=== PATIENT | female | born 1955 | race Caucasian/White ===

== ENCOUNTER 2019-08-27 23:06 | Emergency (ER) | payer OTHER ==
[2019-08-28] MEDS ORDERED: HYDROCODONE/APAP 7.5/325 MG TAB ONE (00:09)
[2019-08-28] MEDS ORDERED: TETANUS & DIPHTHERIA TOX,ADULT 0.5 ML VIAL ONE (00:10)
--- NOTE | 2019-08-28 00:44 | ER ---
Nurse's Notes [facility] Name: Elida Mcdowell Age: 64 yrs Sex: Female : 1955 Arrival Date: 08/27/2019 Time: 23:10 Bed 26 Private MD: Diagnosis: Nondisplaced transcondylar fracture of right humerus Presentation: 08/26 23:24 Chief complaint: Patient states: "I was getting out of my car and I thought I had put jd3 it in park when I guess it was in reverse. I went to get out of the car and it started rolling back and I fell and landed on my right elbow and arm. I banged it up pretty good. EMS came and they bandaged it up and suggested I come to the ER.". Coronavirus screen: Proceed with normal triage. Ebola Screen: Patient negative for fever greater than or equal to 101.5 degrees Fahrenheit, and additional compatible Ebola Virus Disease symptoms. Initial Sepsis Screen: Does the patient meet any 2 criteria? No. Patient's initial sepsis screen is negative. Does the patient have a suspected source of infection? No. Patient's initial sepsis screen is negative. Risk Assessment: Do you want to hurt yourself or someone else? Patient reports no desire to harm self or others. Onset of symptoms was August 27, 2019. 23:24 Method Of Arrival: Wheelchair jd3 23:24 Acuity: BRITNEY 4 jd3 Historical: - Allergies: 23:29 No Known Allergies; jd3 - Home Meds: 23:29 levothyroxine oral [Active]; pravastatin oral oral [Active]; jd3 - PMHx: 23:29 High Cholesterol; jd3 - PSHx: 23:29 neck; jd3 - Immunization history:: Adult Immunizations up to date. - Social history:: Smoking status: Patient reports the use of cigarette tobacco products, smokes one pack cigarettes per day. Screenin:45 Abuse screen: Denies threats or abuse. Nutritional screening: No deficits noted. jb4 Tuberculosis screening: No symptoms or risk factors identified. Fall Risk None identified. Assessment: 23:45 General: Appears in no apparent distress. comfortable, Behavior is calm, cooperative, jb4 appropriate for age. Pain: Complains of pain in right elbow Pain does not radiate. Pain currently is 3 out of 10 on a pain scale. Neuro: Level of Consciousness is awake, alert, obeys commands, Oriented to person, place, time, situation. Cardiovascular: Capillary refill < 3 seconds in right fingers Patient's skin is warm and dry. Pulses are 3+ in right radial artery. Respiratory: Airway is patent Respiratory effort is even, unlabored, Respiratory pattern is regular, symmetrical. GI: No signs and/or symptoms were reported involving the gastrointestinal system. : No signs and/or symptoms were reported regarding the genitourinary system. EENT: No signs and/or symptoms were reported regarding the EENT system. Derm: Skin is intact, Skin is pink, warm \\T\\ dry. Musculoskeletal: Circulation, motion, and sensation intact. Range of motion: limited in right elbow. Injury Description: Abrasion sustained to right bicep is bleeding. 08/27 01:10 Reassessment: Patient appears in no apparent distress at this time. Patient and/or jb4 family updated on plan of care and expected duration. Pain level reassessed. Patient is alert, oriented x 3, equal unlabored respirations, skin warm/dry/pink. Pt verbalized understanding of d/c and follow up instructions. Splint checked by ED provider. Pt assisted to vehicle via wheelchiar. Vital Signs: 08/26 23:29 BP 122 / 66; Pulse 87; Resp 17 S; Temp 97.6(TE); Pulse Ox 100% on R/A; Weight 68.04 kg jd3 (R); Height 5 ft. 1 in. (154.94 cm) (R); Pain 3/10; 08/27 01:00 BP 105 / 55; Pulse 81; Resp 16; Pulse Ox 99% on R/A; jb4 08/26 23:29 Body Mass Index 28.34 (68.04 kg, 154.94 cm) jd3 ED Course: 08/26 23:10 Patient arrived in ED. cl3 23:17 Avery Wu PA is PHCP. cp 23:17 Socrates Amaral MD is Attending Physician. cp 23:27 Triage completed. jd3 23:29 Arm band placed on. jd3 23:45 Patient has correct armband on for positive identification. Bed in low position. Call jb4 light in reach. Side rails up X 1. Pulse ox on. NIBP on. 23:59 Facundo Orourke, RN is Primary Nurse. jb4 08/27 00:13 XRAY Elbow RIGHT 3 view In Process Unspecified. EDMS 00:42 Alberto Logan MD is Referral Physician. cp 01:10 Orthoglass splint: posterior long arm splint applied to the right arm. Checked by ED jb4 Provider. 01:19 No provider procedures requiring assistance completed. Patient did not have IV access jb4 during this emergency room visit. Administered Medications: 00:12 Drug: Hydrocodone-Acetaminophen (7.5 mg-325 mg) 1 tabs {Note: rass score 0.} Route: PO; jb4 00:30 Follow up: Response: No adverse reaction; Pain is decreased; RASS: Alert and Calm (0) jb4 00:12 Drug: Tetanus-Diphtheria Toxoid Adult 0.5 ml {[employer]: [employer]. Exp: jb4 05/23/2021. Lot #: [id number]. } Route: IM; Site: right deltoid; 00:30 Follow up: Response: No adverse reaction jb4 Outcome: 00:44 Discharge ordered by MD. cp 01:10 Discharged to home via wheelchair, with family. jb4 01:10 Condition: stable 01:10 Discharge instructions given to patient, Instructed on discharge instructions, follow up and referral plans. medication usage, Demonstrated understanding of instructions, follow-up care, medications, Prescriptions given X 1. 01:27 Patient left the ED. jb4 Signatures: Dispatcher [employer] EDNV Avery Wu PA PA cp Facundo Orourke, RN RN jb4 Felipe Santiago RN RN Carmella Fischer cl3
--- NOTE | 2019-08-28 00:45 | EDPHYS ---
Physician Documentation [facility] Name: Elida Mcdowell Age: 64 yrs Sex: Female : 1955 Arrival Date: 08/27/2019 Time: 23:10 Bed 26 Private MD: ED Physician Socrates Amaral HPI: 08/26 23:34 This 64 yrs old Female presents to ER via Wheelchair with complaints of Arm cp Pain, Arm Injury. 23:34 The patient or guardian complains of an abrasion, injury, pain, that is acute. The cp complaints affect the right elbow. Context: resulted from a fall, while getting out of car. Onset: The symptoms/episode began/occurred today. Treatment prior to arrival includes: wound dressing. Associated signs and symptoms: Pertinent negatives: numbness. Historical: - Allergies: 23:29 No Known Allergies; jd3 - Home Meds: 23:29 levothyroxine oral [Active]; pravastatin oral oral [Active]; jd3 - PMHx: 23:29 High Cholesterol; jd3 - PSHx: 23:29 neck; jd3 - Immunization history:: Adult Immunizations up to date. - Social history:: Smoking status: Patient reports the use of cigarette tobacco products, smokes one pack cigarettes per day. ROS: 23:40 Constitutional: Negative for fever. cp 23:40 Eyes: Negative for injury, pain, redness, and discharge. cp 23:40 Neck: Negative for pain with movement, pain at rest, stiffness. 23:40 Cardiovascular: Negative for chest pain. 23:40 Respiratory: Negative for cough, shortness of breath, wheezing. 23:40 Abdomen/GI: Negative for abdominal pain, nausea, vomiting, and diarrhea. 23:40 MS/extremity: Positive for injury or acute deformity, decreased range of motion, pain, swelling, tenderness, of the right elbow, Negative for paresthesias. 23:40 Skin: Positive for abrasion(s), of the right elbow and right knee. 23:40 Neuro: Negative for altered mental status, headache, loss of consciousness, weakness. 23:40 All other systems are negative. Exam: 23:45 Constitutional: The patient appears in no acute distress, alert, awake, well developed, cp well nourished, uncomfortable. 23:45 Head/Face: Normocephalic, atraumatic. cp 23:45 Eyes: Periorbital structures: appear normal, Conjunctiva: normal, no exudate, no injection, Lids and lashes: appear normal, bilaterally. 23:45 ENT: External ear(s): are unremarkable, Nose: is normal, Mouth: is normal. 23:45 Neck: C-spine: vertebral tenderness, is not appreciated, crepitus, is not appreciated, ROM/movement: is normal, is supple, without pain, no range of motions limitations, no nuchal rigidity. 23:45 Chest/axilla: Inspection: normal, Palpation: is normal, no crepitus, no tenderness. 23:45 Cardiovascular: Rate: normal, Rhythm: regular. 23:45 Respiratory: the patient does not display signs of respiratory distress, Respirations: normal, no use of accessory muscles, no retractions, labored breathing, is not present, Breath sounds: are clear throughout. 23:45 Abdomen/GI: Inspection: abdomen appears normal, Palpation: abdomen is soft and non-tender, in all quadrants. 23:45 Back: pain, is absent. 23:45 Musculoskeletal/extremity: Extremities: grossly normal except: noted in the right elbow: abrasion, decreased ROM, pain, swelling, tenderness, ROM: limited passive range of motion due to pain, in the right elbow, Perfusion: the extremity is normally perfused throughout, Sensation intact. 23:45 Neuro: Orientation: to person, place \T\ time. Mentation: is normal, Motor: moves all fours, strength is normal. Vital Signs: 23:29 BP 122 / 66; Pulse 87; Resp 17 S; Temp 97.6(TE); Pulse Ox 100% on R/A; Weight 68.04 kg jd3 (R); Height 5 ft. 1 in. (154.94 cm) (R); Pain 3/10; 08/27 01:00 BP 105 / 55; Pulse 81; Resp 16; Pulse Ox 99% on R/A; jb4 08/26 23:29 Body Mass Index 28.34 (68.04 kg, 154.94 cm) jd3 Procedures: 01:25 Splinting: Splint applied to right arm using Orthoglass splint, sling, posterior long cp arm. applied by tech. nurse. Examined by me, post splint application: neurovascular intact, Patient tolerated well. MDM: 08/26 23:33 Patient medically screened. cp 08/27 00:40 Data reviewed: vital signs, nurses notes, radiologic studies, plain films. Counseling: cp I had a detailed discussion with the patient and/or guardian regarding: the historical points, exam findings, and any diagnostic results supporting the discharge/admit diagnosis, radiology results, the need for outpatient follow up, for definitive care, a orthopedic surgeon, to return to the emergency department if symptoms worsen or persist or if there are any questions or concerns that arise at home. Response to treatment: the patient's symptoms have markedly improved after treatment, and as a result, I will discharge patient. 00:40 Test interpretation: by ED physician or midlevel provider: xrays of right elbow show cp transcondylar fracture right distal humerus. 08/26 23:34 Order name: XRAY Elbow RIGHT 3 view cp 08/27 00:21 Order name: Wound dressing; Complete Time: 00:44 cp 08/27 00:21 Order name: Splint - Elbow - Posterior: long arm extend from mid humerus to hand; cp Complete Time: 01:14 Administered Medications: 00:12 Drug: Hydrocodone-Acetaminophen (7.5 mg-325 mg) 1 tabs {Note: rass score 0.} Route: PO; 4 00:30 Follow up: Response: No adverse reaction; Pain is decreased; RASS: Alert and Calm (0) 4 00:12 Drug: Tetanus-Diphtheria Toxoid Adult 0.5 ml {[employer]: [employer]. Exp: jb4 05/23/2021. Lot #: [id number]. } Route: IM; Site: right deltoid; 00:30 Follow up: Response: No adverse reaction jb4 Disposition: 02:17 Co-signature as Attending Physician, Socrates Amaral MD. ma2 Disposition: 08/28/19 00:44 Discharged to Home. Impression: Nondisplaced transcondylar fracture of right humerus. - Condition is Stable. - Discharge Instructions: Humerus Fracture Treated With Immobilization. - Prescriptions for Tylenol- Codeine #3 300-30 mg Oral Tablet - take 2 tablet by ORAL route every 6 hours As needed; 30 tablet. - Medication Reconciliation Form, Thank You Letter, Antibiotic Education, Prescription Opioid Use form. - Follow up: Alberto Logan MD; When: 2 - 3 days; Reason: right elbow fracture. - Problem is new. - Symptoms have improved. Signatures: Dispatcher [employer] EDMS Avery Wu PA PA cp Facundo Orourke RN RN jb4 Felipe Santiago RN RN jd3 Socrates Amaral MD MD ma2 Corrections: (The following items were deleted from the chart) 00:47 00:40 Test interpretation: by ED physician or midlevel provider: xrays of right elbow cp show nondisplaced intercondylar fracture, cp 01:27 00:44 08/28/2019 00:44 Discharged to Home. Impression: Nondisplaced transcondylar jb4 fracture of right humerus. Condition is Stable. Forms are Medication Reconciliation Form, Thank You Letter, Antibiotic Education, Prescription Opioid Use. Follow up: Alberto Logan; When: 2 - 3 days; Reason: right elbow fracture. Problem is new. Symptoms have improved. cp
[2019-08-28 01:33] VITALS: TEMP 97.6
[2019-08-28 01:34] VITALS: BP 105/55; O2SAT 99
--- NOTE | 2019-08-28 08:24 | RAD REPORT ---
EXAM DESCRIPTION: RAD - Elbow Right 3 View - 08/28/2019 12:13 am CLINICAL HISTORY: fall;Pain COMPARISON: No comparisons FINDINGS: Lucency is seen involving the lateral condyles of the distal humerus compatible with nondi splaced fracture. No dislocation.
== END 2019-08-28 01:27 | disposition home or self-care (01) ==
LOC: ER 23:06
PROC: 2W38X1Z Immobilization of Right Upper Extremity using Splint (ICD-10-PCS; principal; 2019-08-28)
DX: S42.474A Nondisplaced transcondylar fracture of right humerus, initial encounter for closed fracture (principal); W19.XXXA Unspecified fall, initial encounter; Y93.89 Activity, other specified; Y92.9 Unspecified place or not applicable; Z23 Encounter for immunization; F17.210 Nicotine dependence, cigarettes, uncomplicated; E78.00 Pure hypercholesterolemia, unspecified
CPT/HCPCS: 90471; 90714; 99284